=== PATIENT | female | born 1995 | race Caucasian/White ===

== ENCOUNTER 2016-11-28 02:21 | Emergency (ER) | payer OTHER ==
[2016-11-28] MEDS ORDERED: LORazepam TAB(*) 1 MG PO ONE (02:48)
--- NOTE | 2016-11-28 04:06 | ED ---
Corinne Gilman Anna, scribed for Jamison Monge MD on 11/28/16 at 0232 . Psychiatric Complaint - HPI Summary HPI Summary: Patient is a 21 y/o female BIBA to [facility] presenting with the onset of a panic attack that began 2300 last evening. The patient additionally reports SOB, anxiety, palpitations, and has difficulty feeling her hands. She has had similar episodes before, but they usually dont last this long. She takes Prozac and Respridol at baseline but has not taken them for two days. She has been consuming caffeine and pt sleeping due to studying. [employer]. She is followed by Dr. Cantu, and her history is significant for anxiety. Patient medications were reviewed this visit. - History Of Current Complaint Hx Obtained From: Patient, EMS Onset/Duration: Lasting Hours, Still Present Timing: Constant Severity Initially: Moderate Severity Currently: Moderate Aggravating Factor(s): Recent Stress, Medication Non-compliance, Other - caffeine, lack of sleep Alleviating Factor(s): Nothing Associated Signs And Symptoms: Positive: Sleep Disturbance - little sleep because of study schedule - Allergies/Home Medications Allergies/Adverse Reactions: Allergies Allergy/AdvReac Type Severity Reaction Status Date / Time No Known Allergies Allergy Verified 11/28/16 02:30 PMH/Surg Hx/FS Hx/Imm Hx Endocrine/Hematology History: Denies: Hx Diabetes Cardiovascular History: Denies: Hx Coronary Artery Disease, Hx Hypertension EENT History: Denies: Hx Deafness Psychiatric History: Reports: Hx Anxiety, Hx Eating Disorder - anorexia Infectious Disease History: Denies: Traveled Outside the [place] in Last 30 Days - Family History Known Family History: Positive: Other - Hx Alzheimer's in paternal grandfather Negative: Cardiac Disease, Hypertension, Diabetes - Social History Occupation: Student Lives: With Family Alcohol Use: Rare Hx Substance Use: Yes Substance Use Type: Reports: Other - ecstasy Substance Use Comment - Amount & Last Used: Last used in 08/2016 Hx Tobacco Use: No Smoking Status (MU): Never Smoked Tobacco Review of Systems Positive: Palpitations Positive: Shortness Of Breath Neurological: Other - difficulty feeling her hands Positive: Anxious All Other Systems Reviewed And Are Negative: Yes Physical Exam Triage Information Reviewed: Yes Vital Signs On Initial Exam: Initial Vitals Temp Pulse Resp BP Pulse Ox 98 F 88 18 122/77 100 11/28/16 02:27 11/28/16 02:27 11/28/16 02:27 11/28/16 02:27 11/28/16 02:27 Vital Signs Reviewed: Yes Appearance: Positive: Well-Appearing - anxious, Thin Skin: Positive: Warm Head/Face: Positive: Normal Head/Face Inspection Eyes: Positive: CHARLIE ENT: Positive: Hearing grossly normal Neck: Positive: Supple Respiratory/Lung Sounds: Positive: Breath Sounds Present Cardiovascular: Positive: Tachycardia Abdomen Description: Positive: Nontender, Soft Bowel Sounds: Positive: Present Musculoskeletal: Positive: Strength/ROM Intact Neurological: Positive: Sensory/Motor Intact, Alert, Oriented to Person Place, Time Psychiatric: Positive: Anxious Diagnostics - Vital Signs Vital Signs Temp Pulse Resp BP Pulse Ox 11/28/16 02:27 98 F 88 18 122/77 100 - Laboratory Lab Statement: Any lab studies that have been ordered have been reviewed, and results considered in the medical decision making process. Re-Evaluation - Re-Evaluation First Eval Re-Evaluation Time: 03:19 Change: Improved Comment: Patient is in bed and appears less anxious. Second Eval Re-Evaluation Time: 03:58 Change: Improved Comment: Pt is improved following Ativan. Discussed plan for discharge. Patient is agreeable. Course/Dx - Course Assessment/Plan: Patient is a 21 y/o female BIBA to [facility] presenting with the onset of a panic attack that began 2300 last evening. Patient was given Ativan in the ED course. She is improved following medication and will be discharged home. She was instructed to take medications as previously prescribed and follow up with her doctor. She understands and is agreeable. - Differential Dx/Clinical Impression Provider Diagnosis: Anxiety Discharge - Discharge Plan Condition: Stable Disposition: HOME Patient Education Materials: Anxiety (ED) Referrals: [facility] [Primary Care Provider] - Additional Instructions: Take medications as were previously prescribed. Follow up with primary care physician within 48 hours. Return to the Emergency Department for new or worsening symptoms. The documentation as recorded by the Corinne mayo Anna accurately reflects the service I personally performed and the decisions made by me, Jamison Monge MD.
[2016-11-28 04:08] VITALS: BP 102/62
== END 2016-11-28 04:06 | disposition home or self-care (01) ==
LOC: ED 02:21
DX: F41.9 Anxiety disorder, unspecified (principal)
CPT/HCPCS: 99283; A9270-GY

== ENCOUNTER 2017-07-10 18:10 | Emergency (ER) | payer OTHER ==
[2017-07-10 19:06] LABS: Urine Appearance Clear; Urine Blood Negative (Negative); Urine Color Straw; Urine Ketones Negative (Negative); Urine Protein Negative (Negative); Urine Specific Gravity 1.006 (1.010-1.030); Urine Urobilinogen Negative (Negative)
--- NOTE | 2017-07-10 19:40 | ED ---
Psychiatric Complaint - HPI Summary HPI Summary: Pt present by EMS from [facility] for a MHE. Pt graduated Sat from [place]. Pt with a h/o binging and anorexia. Pt states she ate approx 87221 calories Fri to sat. Pt states she purged with vomiting x1 and has been taking laxatives. Pt states she is schedule for inpatient anorexia treatment in 2 weeks. Pt states she went to [facility] today to be "checked" and completed a screening form and indicated feeling helpless most days. Pt states she has a "screwed up family that pretends to be nice to each other" and this has not changes. Pt states in the past she has injured herself but never with intention of commitin suicide. Pt states today she "will probably be fine" and requests to leave. I explained to pt needs to stay for mental health eval. and the process. Pt states understanding and agreement with plan. Pt's only complaint is feeling cold. Denies valdez, vision changes, cp, sob, abd pain. No paresthesia, muscle weakness. pt's medications reviewed this visit - History Of Current Complaint Chief Complaint: EDMentalHealth Time Seen by Provider: 07/10/17 18:29 Hx Obtained From: Patient Onset/Duration: Gradual Onset Timing: Constant Severity Initially: Moderate Severity Currently: Moderate Character: Depressed, Frustrated Aggravating Factor(s): Nothing Alleviating Factor(s): Nothing Associated Signs And Symptoms: Positive: Sleep Disturbance, Appetite Change Has Suicidal: Reports: Thoughts Recent Stressor(s): graduation, inpt tx for anorexia, holidays, family discourse - Allergies/Home Medications Allergies/Adverse Reactions: Allergies Allergy/AdvReac Type Severity Reaction Status Date / Time No Known Allergies Allergy Verified 07/10/17 18:15 Home Medications: Home Medications NK [No Home Medications Reported] 07/10/17 [History Confirmed 07/10/17] PMH/Surg Hx/FS Hx/Imm Hx Previously Healthy: Yes Endocrine/Hematology History: Denies: Hx Diabetes Cardiovascular History: Denies: Hx Coronary Artery Disease, Hx Hypertension Sensory History: Denies: Hx Deafness Psychiatric History: Reports: Hx Anxiety, Hx Eating Disorder - anorexia - Immunization History Date of Tetanus Vaccine: UTD Date of Influenza Vaccine: NO Immunizations Up to Date: Yes Infectious Disease History: Unable to Obtain/Confirm Infectious Disease History: Denies: Traveled Outside the [place] in Last 30 Days - Family History Known Family History: Positive: Other - Hx Alzheimer's in paternal grandfather Negative: Cardiac Disease, Hypertension, Diabetes - Social History Occupation: Student Lives: Alone Alcohol Use: Rare Hx Substance Use: Yes Substance Use Type: Reports: Marijuana Substance Use Comment - Amount & Last Used: Last used in 08/2016 Hx Tobacco Use: No Smoking Status (MU): Never Smoked Tobacco Review of Systems Positive: Chills Positive: Depressed All Other Systems Reviewed And Are Negative: Yes Physical Exam Triage Information Reviewed: Yes Vital Signs On Initial Exam: Initial Vitals Temp Pulse Resp BP Pulse Ox 98.2 F 65 16 117/73 99 07/10/17 18:16 07/10/17 18:16 07/10/17 18:16 07/10/17 18:16 07/10/17 18:16 Vital Signs Reviewed: Yes Appearance: Positive: Well-Appearing, No Pain Distress, Well-Nourished Skin: Positive: Warm, Skin Color Reflects Adequate Perfusion, Dry Head/Face: Positive: Normal Head/Face Inspection Eyes: Positive: Conjunctiva Clear ENT: Positive: Hearing grossly normal, Other - mmoist Neck: Positive: Supple, Nontender, No Lymphadenopathy Respiratory/Lung Sounds: Positive: Clear to Auscultation, Breath Sounds Present , Decreased Breath Sounds Cardiovascular: Positive: Normal, RRR. Negative: Murmur Abdomen Description: Positive: Nontender, No Organomegaly, Soft Bowel Sounds: Positive: Present Musculoskeletal: Positive: Normal, Strength/ROM Intact Neurological: Positive: Normal, Sensory/Motor Intact, Alert, Oriented to Person Place, Time Psychiatric: Positive: Normal, Affect/Mood Appropriate - quiet, poor eye contact , appropriate AVPU Assessment: Alert - Nelida Coma Scale Best Eye Response: 4 - Spontaneous Best Motor Response: 6 - Obeys Commands Best Verbal Response: 5 - Oriented Coma Scale Total: 15 Diagnostics - Vital Signs Vital Signs Temp Pulse Resp BP Pulse Ox 07/10/17 18:18 98.2 F 65 16 117/73 99 07/10/17 18:16 98.2 F 65 16 117/73 99 - Laboratory Lab Results: Lab Results 07/10/17 07/10/17 Range/Units 18:44 18:44 Urine Color Straw Urine Appearance Clear Urine pH 7.0 (5-9) Ur Specific [place] 1.006 L (1.010-1.030) Urine Protein Negative (Negative) Urine Ketones Negative (Negative) Urine Blood Negative (Negative) Urine Nitrate Negative (Negative) Urine Bilirubin Negative (Negative) Urine Urobilinogen Negative (Negative) Ur Leukocyte Esterase Negative (Negative) Urine Glucose Negative (Negative) Urine Opiates Screen None detected (None Detect) Ur Barbiturates Screen None detected (None Detect) Ur Phencyclidine Scrn None detected (None Detect) Ur Amphetamines Screen None detected (None Detect) U Benzodiazepines Scrn None detected (None Detect) Urine Cocaine Screen None detected (None Detect) U Cannabinoids Screen None detected (None Detect) Result Diagrams: 07/10/17 19:35 07/10/17 19:35 Lab Statement: Any lab studies that have been ordered have been reviewed, and results considered in the medical decision making process. Course/Dx - Course Assessment/Plan: Pt presents from [facility] after discussing daily feeling of hopelessness and recent binge/purge with her anorexia. Reviewed EKG from [facility] without acute ST/T wave changes, no u wave. will check labs. mental health eval. Pt comfortable and in agreement with plan - Differential Dx/Clinical Impression Differential Diagnosis/HQI/PQRI: Positive: Other - signed out Dr. Alberto 20:00 mental health consult pending Provider Diagnosis: Anorexia, Depression Discharge - Discharge Plan Condition: Stable Disposition: OTHER Discharge Disposition Comment: signed out Dr. Alberto [phone] Referrals: [facility],[place] [Primary Care Provider] -
[2017-07-10 19:50] LABS: ABS Basophils 0 10^3/ul (0-0.2); ABS Eosinophils 0 10^3/ul (0-0.6); ABS Lymphocytes 1.7 10^3/ul (1.0-4.8); ABS Monocytes 0.3 10^3/ul (0-0.8); ABS Nucleated RBC 0.01 10^3/ul; Eosinophil % 1.2 % (0-6); Hematocrit 37 % (35-47); Hemoglobin 12.6 g/dl (12.0-16.0); Lymphocyte % 41.8 % (25-47); Mean Corpuscular HGB Conc 34 g/dl (31-36); Mean Corpuscular Hemoglobin 32 pg (27-31); Mean Corpuscular Volume 94 fL (80-97); Mean Platelet Volume 11 um3 (7.4-10.4); Nucleated Red Blood Cells % 0.2; Platelet Count 123 10^3/ul (150-450); Red Blood Count 3.91 10^6/ul (4.0-5.4); Red Cell Distribution Width 17 % (10.5-15); White Blood Count 4.1 10^3/ul (3.5-10.8)
[2017-07-10 20:08] LABS: EGFR Non-African American 103.9 (>60)
[2017-07-10] MEDS ORDERED: Acetaminophen TAB* 325 MG PO ONE (23:08)
--- NOTE | 2017-07-11 06:45 | ED ---
Kishan Gilman Tiffany, scribed for Jeramie Alberto on 07/11/17 at 0641 . Progress - Consult/PCP Time Called: 18:00 Course/Dx - Course Course Of Treatment: Patient will be signed out to Dr. Deras at shift change, awaiting mental health evaluation. - Diagnoses Provider Diagnoses: Anorexia, Depression The documentation as recorded by the Kishan mayo Tiffany accurately reflects the service I personally performed and the decisions made by Dolly jimenes Emmanuel.
--- NOTE | 2017-07-11 09:40 | PN ---
ED Flex Patient Progress Note Date of Service: 07/10/17 Subjective: This is a 21 year-old F who is pending disposition once collateral information is obtained by mother. Patient has eating disorder however has an appointment with clinic in 1 week already scheduled. Pt offers no complaints at this time and is was sleeping upon arrival. Objective: Vitals: Most recent vital signs documented below. General NAD, Alert and oriented x3. Heart: rrr at 61 bpm Lungs: CTA or with rales, rhonchi, wheezing Laboratory: Current laboratory results documented below. Assessment: pending disposition. eating disorder depression Plan: Pending psychiatric disposition once collateral information from mother is obtained. will follow up daily. Vital Signs Temp Pulse Resp BP Pulse Ox 98.5 F 61 16 84/48 100 07/11/17 08:16 07/11/17 08:16 07/11/17 08:16 07/11/17 08:16 07/11/17 08:16 Lab Results - Entire Visit 07/10/17 07/10/17 07/10/17 19:35 19:35 18:44 WBC 4.1 RBC 3.91 L Hgb 12.6 Hct 37 MCV 94 MCH 32 H MCHC 34 RDW 17 H Plt Count 123 L MPV 11 H Neut % (Auto) 48.8 Lymph % (Auto) 41.8 Toombs % (Auto) 7.4 Eos % (Auto) 1.2 Baso % (Auto) 0.8 Absolute Neuts (auto) 2.0 Absolute Lymphs (auto) 1.7 Absolute Monos (auto) 0.3 Absolute Eos (auto) 0 Absolute Basos (auto) 0 Absolute Nucleated RBC 0.01 Nucleated RBC % 0.2 Sodium 142 Potassium 4.0 Chloride 108 Carbon Dioxide 30 Anion Gap 4 BUN 13 Creatinine 0.71 Est GFR ( Amer) 133.6 Est GFR (Non-Af Amer) 103.9 BUN/Creatinine Ratio 18.3 Glucose 85 Calcium 10.5 H Total Bilirubin 0.50 AST 19 ALT 21 Alkaline Phosphatase 45 Total Protein 6.9 Albumin 4.5 Globulin 2.4 Albumin/Globulin Ratio 1.9 TSH 1.36 Beta HCG, Quant < 0.60 Urine Color Straw Urine Appearance Clear Urine pH 7.0 Ur Specific [place] 1.006 L Urine Protein Negative Urine Ketones Negative Urine Blood Negative Urine Nitrate Negative Urine Bilirubin Negative Urine Urobilinogen Negative Ur Leukocyte Esterase Negative Urine Glucose Negative Salicylates < 2.50 Urine Opiates Screen Acetaminophen < 15 Ur Barbiturates Screen Ur Phencyclidine Scrn Ur Amphetamines Screen U Benzodiazepines Scrn Urine Cocaine Screen U Cannabinoids Screen Serum Alcohol < 10 07/10/17 18:44 WBC RBC Hgb Hct MCV MCH MCHC RDW Plt Count MPV Neut % (Auto) Lymph % (Auto) [place]om[place] % (Auto) Eos % (Auto) Baso % (Auto) Absolute Neuts (auto) Absolute Lymphs (auto) Absolute Monos (auto) Absolute Eos (auto) Absolute Basos (auto) Absolute Nucleated RBC Nucleated RBC % Sodium Potassium Chloride Carbon Dioxide Anion Gap BUN Creatinine Est GFR ( Amer) Est GFR (Non-Af Amer) BUN/Creatinine Ratio Glucose Calcium Total Bilirubin AST ALT Alkaline Phosphatase Total Protein Albumin Globulin Albumin/Globulin Ratio TSH Beta HCG, Quant Urine Color Urine Appearance Urine pH Ur Specific [place] Urine Protein Urine Ketones Urine Blood Urine Nitrate Urine Bilirubin Urine Urobilinogen Ur Leukocyte Esterase Urine Glucose Salicylates Urine Opiates Screen None detected Acetaminophen Ur Barbiturates Screen None detected Ur Phencyclidine Scrn None detected Ur Amphetamines Screen None detected U Benzodiazepines Scrn None detected Urine Cocaine Screen None detected U Cannabinoids Screen None detected Serum Alcohol <Chasidy Shahsa - Last Filed: 07/11/17 09:38> Subjective: This is a 21 year-old F who is pending admission to [facility] / transfer to another psychiatric facility / discharge to home / or being observed secondary to . Pt offers no complaints at this time or is c/o . Objective: Vitals: Most recent vital signs documented below. General NAD, Alert and oriented x3. Heart: rrr at bpm Lungs: CTA or with rales, rhonchi, wheezing Laboratory: Current laboratory results documented below. Assessment: Plan: Pending psychiatric or medical consultation to observe / transfer / admit / discharge will follow up daily . Vital Signs Temp Pulse Resp BP Pulse Ox 98.3 F 85 18 101/60 100 07/11/17 13:49 07/11/17 13:49 07/11/17 13:49 07/11/17 13:49 07/11/17 13:49 Lab Results - Entire Visit 07/10/17 07/10/17 07/10/17 19:35 19:35 18:44 WBC 4.1 RBC 3.91 L Hgb 12.6 Hct 37 MCV 94 MCH 32 H MCHC 34 RDW 17 H Plt Count 123 L MPV 11 H Neut % (Auto) 48.8 Lymph % (Auto) 41.8 [place]om[place] % (Auto) 7.4 Eos % (Auto) 1.2 Baso % (Auto) 0.8 Absolute Neuts (auto) 2.0 Absolute Lymphs (auto) 1.7 Absolute Monos (auto) 0.3 Absolute Eos (auto) 0 Absolute Basos (auto) 0 Absolute Nucleated RBC 0.01 Nucleated RBC % 0.2 Sodium 142 Potassium 4.0 Chloride 108 Carbon Dioxide 30 Anion Gap 4 BUN 13 Creatinine 0.71 Est GFR ( Amer) 133.6 Est GFR (Non-Af Amer) 103.9 BUN/Creatinine Ratio 18.3 Glucose 85 Calcium 10.5 H Total Bilirubin 0.50 AST 19 ALT 21 Alkaline Phosphatase 45 Total Protein 6.9 Albumin 4.5 Globulin 2.4 Albumin/Globulin Ratio 1.9 TSH 1.36 Beta HCG, Quant < 0.60 Urine Color Straw Urine Appearance Clear Urine pH 7.0 Ur Specific [place] 1.006 L Urine Protein Negative Urine Ketones Negative Urine Blood Negative Urine Nitrate Negative Urine Bilirubin Negative Urine Urobilinogen Negative Ur Leukocyte Esterase Negative Urine Glucose Negative Salicylates < 2.50 Urine Opiates Screen Acetaminophen < 15 Ur Barbiturates Screen Ur Phencyclidine Scrn Ur Amphetamines Screen U Benzodiazepines Scrn Urine Cocaine Screen U Cannabinoids Screen Serum Alcohol < 10 07/10/17 18:44 WBC RBC Hgb Hct MCV MCH MCHC RDW Plt Count MPV Neut % (Auto) Lymph % (Auto) [place] % (Auto) Eos % (Auto) Baso % (Auto) Absolute Neuts (auto) Absolute Lymphs (auto) Absolute Monos (auto) Absolute Eos (auto) Absolute Basos (auto) Absolute Nucleated RBC Nucleated RBC % Sodium Potassium Chloride Carbon Dioxide Anion Gap BUN Creatinine Est GFR ( Amer) Est GFR (Non-Af Amer) BUN/Creatinine Ratio Glucose Calcium Total Bilirubin AST ALT Alkaline Phosphatase Total Protein Albumin Globulin Albumin/Globulin Ratio TSH Beta HCG, Quant Urine Color Urine Appearance Urine pH Ur Specific [place] Urine Protein Urine Ketones Urine Blood Urine Nitrate Urine Bilirubin Urine Urobilinogen Ur Leukocyte Esterase Urine Glucose Salicylates Urine Opiates Screen None detected Acetaminophen Ur Barbiturates Screen None detected Ur Phencyclidine Scrn None detected Ur Amphetamines Screen None detected U Benzodiazepines Scrn None detected Urine Cocaine Screen None detected U Cannabinoids Screen None detected Serum Alcohol <Natalie Brown - Last Filed: 07/11/17 21:38>
[2017-07-11 13:51] VITALS: BP 101/60
== END 2017-07-11 13:31 ==
LOC: ED 18:10
DX: F50.89 Other specified eating disorder (principal); F32.9 Major depressive disorder, single episode, unspecified; F41.9 Anxiety disorder, unspecified; Z32.02 Encounter for pregnancy test, result negative
CPT/HCPCS: 36415; 80053; 80307; 80320; 80329; 81003; 84443; 84702; 85025; 99283; A9270-GY; G0480